=== PATIENT | female | born 1990 | race African-American/Black ===

== ENCOUNTER 2019-02-07 16:07 | Emergency (ER) | payer OTHER ==
[~2019-02-07] VITALS: Ht 170.2 cm; Wt 75.3 kg
[2019-02-07 16:07] VITALS: BP_SYST 105
--- NOTE | 2019-02-07 16:07 | NUR ---
BROUGHT IN BY [facility], VSS, PT TAKEN TO TRIAGE ROOM FOR EKG. NO ROOMS AVAILABLE AT THIS TIME. AWAITING ROOM.
--- NOTE | 2019-02-07 16:10 | NUR ---
Pt brought by ambulance, A&Ox4, pt presents to ER with L side chest pain, mild SOB and anxiety. Pt states she was recently diagnosed with lupus and feels anxious about it , skin pink and warm, ambulatory, respirations even and unlabored, no N/V noted at this time.
--- NOTE | 2019-02-07 16:20 | NUR ---
Dr Berg at bedside examining patient.
[2019-02-07] MEDS ORDERED: KETOROLAC TROMETHAMINE 60 MG/2 ML VIAL IM ONE (16:45)
[2019-02-07] MEDS ORDERED: HYDROcodone/ACETAMIN 10-325 MG TAB PO ONE (16:45)
[2019-02-07 17:06] LABS: BARBITURATE, URINE NEGATIVE (NEG <=200); BENZODIAZEPINE, URINE NEGATIVE (NEG <=150); CANNABINOID, URINE POSITIVE (NEG <=50); COCAINE, URINE NEGATIVE (NEG <=150); METHAMPHETAMINES SCREEN,URINE NEGATIVE (NEG <=500); OPIATE, URINE NEGATIVE (NEG <=100); PHENCYCLIDINE SCREEN,URINE NEGATIVE (NEG <=25); UR TRICYCLIC ANTIDEPRESSANTS NEGATIVE (NEG <=300); URINE AMPHETAMINE NEGATIVE (NEG <=500); URINE METHADONE NEGATIVE (NEG <=200); URINE OXYCODONE SCREEN NEGATIVE (NEG <=100); URINE PROPOXYPHENE SCREEN NEGATIVE (NEG <=300)
[2019-02-07 17:14] LABS: BASOPHILS % (AUTO) 0.8 % (0.0-2.0); EOSINOPHILS % (AUTO) 0.8 % (0.0-4.0); HEMATOCRIT 38.9 % (36-48); HEMOGLOBIN 12.6 g/dL (12.0-16.0); LYMPHOCYTES # (AUTO) 2.3 K/uL (1.0-5.5); LYMPHOCYTES % (AUTO) 42.8 % (20.5-51.5); MEAN CORPUSCULAR HEMOGLOBIN 31 pg (27-31); MEAN CORPUSCULAR HGB CONC 33 % (32-36); MEAN CORPUSCULAR VOLUME 96 fL (79.0-98.0); MONOCYTES # (AUTO) 0.5 K/uL (0.0-1.0); MONOCYTES % (AUTO) 8.5 % (1.7-9.3); NEUTROPHILS # (AUTO) 2.5 K/uL (1.8-7.7); NEUTROPHILS % (AUTO) 47.1 % (40.0-70.0); PLATELET COUNT (AUTO) 188 K/uL (130-430); RED BLOOD CELL COUNT(AUTO) 4.07 MIL/uL (4.2-6.2); RED CELL DISTRIBUTION WIDTH 15.6 % (9.0-15.0); WHITE BLOOD COUNT (AUTO) 5.3 K/uL (4.8-10.8)
[2019-02-07 17:21] LABS: CALCIUM 9.5 mg/dL (8.4-11.0); CREATININE 0.62 mg/dL (0.55-1.30); POTASSIUM 3.9 mmol/L (3.5-5.1)
[2019-02-07 17:26] LABS: ALBUMIN 3.7 g/dL (3.4-4.8); TOTAL BILIRUBIN 0.3 mg/dL (0.0-1.0)
--- NOTE | 2019-02-07 17:51 | NUR ---
Pt resting at this time, VSS, no s/s of distress.
[2019-02-07 18:58] VITALS: BP_SYST 105
--- NOTE | 2019-02-07 19:00 | NUR ---
Patient given written and verbal discharge instructions and verbalizes understanding. ER MD discussed with patient the results and treatment provided. Patient in stable condition. ID arm band removed. Rx of Motrin and [place] given. Patient educated on pain management and to follow up with PMD. Pain Scale 0/10 . Opportunity for questions provided and answered. Medication side effect fact sheet provided.
== END 2019-02-07 19:00 | disposition home or self-care (01) ==
LOC: SED 16:07
DX: M94.0 Chondrocostal junction syndrome [Tietze] (principal); F41.9 Anxiety disorder, unspecified; R03.0 Elevated blood-pressure reading, without diagnosis of hypertension
CPT/HCPCS: 36415; 71045; 80053; 80307; 82550; 83880; 84484; 85025; 96372; 99284; J1885